=== PATIENT | male | born 1975 | race Caucasian/White ===

== ENCOUNTER 2023-09-03 22:52 | Emergency (ER) | payer BC, SELFPAY ==
[2023-09-03 23:00] VITALS: BP 137/82; PULSE 107; RESP 18; TEMP 37.6; O2SAT 98
== END 2023-09-03 23:05 | disposition left against medical advice (07) ==
PROVIDERS: Emergency Provider Internal Medicine
DX: Z53.21 Procedure and treatment not carried out due to patient leaving prior to being seen by health care provider (principal)
CPT/HCPCS: 99281

== ENCOUNTER 2024-10-17 12:32 | Emergency (ER) | payer BC, SELFPAY ==
[2024-10-17 12:35] VITALS: BP 144/83; PULSE 89; TEMP 36.7; O2SAT 91; BMI 30.8
--- NOTE | 2024-10-17 12:41 | XR_ITS ---
The [address] [address] Patient Name: JENNIE BRUNO MRN: [id number] date: 1975 Sex: M Assigned Patient Location: ER Current Patient Location: ER Accession/Order Number: [id number] Exam Date: 10/17/2024 12:48 Report Date: 10/17/2024 13:25 At the request of: NASRIN MENA Procedure: XR chest 1V EXAM: XR chest 1V HISTORY: cough COMPARISON: None. TECHNIQUE: AP upright chest x-ray FINDINGS: Lungs clear without infiltrate or edema. Heart size accentuated by magnification felt to be normal for technique. No mass or adenopathy. No pleural effusion or pneumothorax. XR/XR chest 1V IMPRESSION: Negative chest x-ray, no acute process. Clear lungs. Electronically authenticated by: SANTIAGO SANCHEZ Date: 10/17/2024 13:25
--- NOTE | 2024-10-17 12:41 | ED_ITS ---
HPI - URI/Sore Throat General Chief Complaint: Upper Respiratory Infection Stated Complaint: CONGESTION, CHILLS, SOB Time Seen by Provider: 10/17/24 12:36 Source: patient Limitations: no limitations History of Present Illness HPI Narrative: 49-year-old male presents to the emergency department for cough. He has been sick for about 2 weeks and has been coughing up some yellow phlegm. His was diagnosed with COVID today. He is a smoker and he used his inhaler shortly before coming into the emergency department and he states it made him feel better. Related Data Previous Rx's ?Medication ?Instructions ?Recorded azithromycin 250 mg tablet See Rx Instructions PO .COMPLEX #6 10/17/24 (Zithromax Z-Leroy) tabs benzonatate 100 mg capsule 100 mg PO TID PRN cough #20 caps 10/17/24 Allergies Allergy/AdvReac Type Severity Reaction Status Date / Time ketorolac (From Toradol) Allergy Verified 09/03/23 23:03 risperidone (From Risperdal) Allergy Verified 09/03/23 23:03 Review of Systems ROS Narrative A ten point review of systems is negative except as noted above. PFSH PFSH Social History Smoking status: Never smoker Little interest or pleasure in doing things: not at all Feeling down, depressed, or hopeless: not at all Exam Narrative Exam Narrative: Nurses note and vital signs reviewed and patient is not hypoxic. General: The patient appears in no apparent distress. Patient is resting comfortably on cart. Skin: Warm, dry, no pallor noted. There is no rash noted. Head: Normocephalic, atraumatic Eye: Normal conjunctiva, no drainage Ears, Nose, Mouth, and Throat: oral mucosa is moist. Nares patent. Cardiovascular: Regular Rate and Rhythm Respiratory: Bilateral rhonchi throughout Back: non-tender GI: Soft and nontender Musculoskeletal: The patient has no evidence of calf tenderness, no pitting edema, symmetrical pulses noted bilaterally Neurological: A&O, normal speech Psychiatric: Cooperative Constitutional Vital Signs, click to edit/add: Last Vital Signs Temp 98.1 F 10/17/24 12:35 Pulse 89 10/17/24 12:35 Resp 20 10/17/24 12:35 BP 144/83 H 10/17/24 12:35 Pulse Ox 91 L 10/17/24 12:35 O2 Del Method Room Air 10/17/24 12:35 Course Vital Signs Vital signs: Vital Signs Temperature 98.1 F 10/17/24 12:35 Pulse Rate 89 10/17/24 12:35 Respiratory Rate 20 10/17/24 12:35 Blood Pressure 144/83 H 10/17/24 12:35 Pulse Oximetry 91 L 10/17/24 12:35 Oxygen Delivery Method Room Air 10/17/24 12:35 Temperature 98.1 F 10/17/24 12:35 Pulse Rate 89 10/17/24 12:35 Respiratory Rate 20 10/17/24 12:35 Blood Pressure 144/83 H 10/17/24 12:35 Pulse Oximetry 91 L 10/17/24 12:35 Oxygen Delivery Method Room Air 10/17/24 12:35 MDM - URI/Sore Throat MDM Narrative Medical decision making narrative: He tested negative for influenza and COVID and his chest x-ray is negative as well. Treatment diagnosis and follow-up were discussed with the patient. Differential Diagnosis Differential diagnosis: Likely upper respiratory infection, viral infection, bronchitis, influenza and other (COVID, pneumonia) Lab Data Attestation: I reviewed the patient's lab results. Labs: Lab Results 10/17/24 Range/Units 12:39 Influenza Type A Ag Negative Influenza Type B Ag Negative SARS-CoV-2 Ag (CV2AG) Negative (NEGATIVE) Imaging Data Chest x-ray: Radiologist's impression: ITS Impressions Chest X-Ray 10/17/24 12:41 IMPRESSION: Negative chest x-ray, no acute process. Clear lungs. Electronically authenticated by: SANTIAGO SANCHEZ Date: 10/17/2024 13:25 Discharge Plan Discharge Chief Complaint: Upper Respiratory Infection Clinical Impression: Upper respiratory infection Patient Disposition: Home, Self-Care Time of Disposition Decision: 13:36 Condition: Good Mode of Transportation: Private Vehicle Prescriptions / Home Meds: New azithromycin [Zithromax Z-Leroy] 250 mg tablet See Rx Instructions .ROUTE .COMPLEX Qty: 6 0RF Rx Instructions: For 250 mg dose pack: take 500 mg today (day 1), then 250 mg for 4 days (days 2-5) benzonatate 100 mg capsule 100 mg PO TID PRN (Reason: cough) Qty: 20 0RF Print Language: Bulgarian Instructions: Upper Respiratory Infection (ED) Referrals: KIANA DEL CID [Primary Care Provider] - 1 week
[2024-10-17 13:08] LABS: Influenza Virus A Antigen Negative; Influenza Virus B Antigen Negative; Internal Control Within Normal Limits; SARS-CoV-2 Ag NEGATIVE (NEGATIVE)
== END 2024-10-17 13:54 | disposition home or self-care (01) ==
PROVIDERS: Emergency Provider Emergency Medicine; PCP Nurse Practitioner
DX: J06.9 Acute upper respiratory infection, unspecified (principal); Z20.822 Contact with and (suspected) exposure to COVID-19
CPT/HCPCS: 71045; 87804; 87811; 99285